=== PATIENT | female | born 1950 | race Caucasian/White ===

== ENCOUNTER 2016-07-09 12:29 | Day surgery (SDC) | payer BC ==
[2016-07-04 11:44] LABS: BASOPHILS 2.4 %; EOSINOPHILS 3.3 %; EOSINOPHILS ABSOLUTE 0.14 10/3/uL (0.0-0.53); HEMATOCRIT 39.3 % (36.0-48.0); HEMOGLOBIN 13.1 g/dL (12.0-16.0); LYMPHOCYTES 34.9 %; LYMPHOCYTES ABSOLUTE 1.48 10/3/uL (0.67-4.30); MEAN CORPUS HGB CONC 33.3 g/dL (32.0-36.0); MEAN CORPUSCULAR HEMOGLOB 31.3 pg (26.0-34.0); MEAN PLATELET VOLUME 9.8 fL (9.2-13.0); MONOCYTES 9.4 %; NEUTROPHILS ABSOLUTE 2.12 10/3/uL (2.02-8.40); PLATELET COUNT 271 10/3/uL (150-400); RBC DISTRIBUTION WIDTH 14.8 % (12.0-16.0); RED CELL COUNT 4.18 10/6/uL (4.0-5.6); WHITE BLOOD CELLS 4.2 10/3/uL (4.5-10.5)
[2016-07-04 11:45] LABS: MANUAL DIFF NO %
[2016-07-04 11:58] LABS: BUN (BLOOD UREA NITROGEN) 11 MG/DL (6-23); CALCIUM, SERUM 9.3 MG/DL (8.5-10.4); CHLORIDE, SERUM 109 MMOL/L (96-112); CO2 (CARBON DIOXIDE) 28 MMOL/L (24-34); CREATININE 0.74 MG/DL (0.55-1.02); GFR AFRICAN AMERICAN 100 ML/MIN (>=60); GFR NON AFRICAN AMERICAN 86 ML/MIN (>=60); GLUCOSE, SERUM 89 MG/DL (60-99); POTASSIUM, SERUM 4.2 MMOL/L (3.5-5.3); SODIUM, SERUM 146 MMOL/L (135-148)
--- NOTE | ~2016-07-09 | OP ---
Record Of Operation [facility] [address] [place]. [address] NAME: SANTY ANDERSON : 54 STATUS : [facility]#: [id number] AGE: 65 ADM/REG DATE : 07/09/16 MR#: [id number] REPORT SERV DATE: 07/09/16 DICTATED BY: RANDY NEVAREZ III DATE: 07/09/16 REPORT STATUS : Draft TRANSCRIBED BY: MODL DATE: 07/09/16 DATE OF PROCEDURE: 07/09/2016 PROCEDURE: Cystoscopy, bilateral retrogrades, and left ureteroscopy. PREOPERATIVE DIAGNOSIS: Gross hematuria, history of para-ganglioneuroma of the bladder. POSTOPERATIVE DIAGNOSIS: Gross hematuria, history of para-ganglioneuroma of the bladder. ANESTHESIA: General. SURGEON: Randy Nevarez M.D. PROCEDURE IN DETAIL: Following induction of adequate anesthesia, the patient was placed in dorsal lithotomy position, prepped and draped in the sterile fashion. There was a urethra that was normal. There was some cystocele present. The bladder was inspected with both 30 degree and 70 degree lenses. No erythema or masses were noted. Both orifices looked identical. Bilateral retrogrades were done within a cone tip. No filling defects were noted. The calyces were sharp. Ureteroscope was placed up to the pelvic brim over a wire and no tumor was noted in the left ureter. The procedure was terminated. IMPRESSION: Gross hematuria. She has had a CT as well and at this point, I do not think there is recurrence of a paraganglioma. OB/MODL Randy Nevarez III, M.D. / [id number] CC: Catalina Moreno III, D.O.
[~2016-07-09 12:29] MED LIST: ASAB PO; OS500+D PO; PAX20 PO; RESTORIL30 MG PO; SYMBICORT 160/41 INH INH
== END 2016-07-09 17:17 | disposition home or self-care (01) ==
LOC: SDC 12:29
PROVIDERS: Urology
PROC: BT14ZZZ Fluoroscopy of Kidneys, Ureters and Bladder (ICD-10-PCS; 2016-07-09)
PROC: 0TJ98ZZ Inspection of Ureter, Via Natural or Artificial Opening Endoscopic (ICD-10-PCS; principal; 2016-07-09 13:15)
DX: R31.0 Gross hematuria (principal); J44.9 Chronic obstructive pulmonary disease, unspecified; Z98.890 Other specified postprocedural states; E04.9 Nontoxic goiter, unspecified; Z85.51 Personal history of malignant neoplasm of bladder; Z90.89 Acquired absence of other organs; R01.1 Cardiac murmur, unspecified; I49.9 Cardiac arrhythmia, unspecified; M81.0 Age-related osteoporosis without current pathological fracture; Z79.82 Long term (current) use of aspirin; Z79.899 Other long term (current) drug therapy
CPT/HCPCS: 71020; 74420; 80048; 85025; 93005; C1758; C1769; J0690; J2250; J2405; J2710; J3010; Q9967